=== PATIENT | male | born 1965 | race Caucasian/White ===

== ENCOUNTER 2019-04-14 07:23 | Emergency (ER) | payer OTHER ==
--- NOTE | 2019-04-14 07:34 | EDM.PDOC ---
ED HPI GENERAL MEDICAL PROBLEM - General Chief Complaint: Gastrointestinal Problem Stated Complaint: BOWEL ISSUES, LOSING CONSCIOUSNESS Time Seen by Provider: 04/14/19 07:31 Source of Information: Reports: Patient History Limitations: Reports: No Limitations - History of Present Illness INITIAL COMMENTS - FREE TEXT/NARRATIVE: History of present illness: []Patient had surgery on his right rotator cuff 3 days ago and was put on a narcotic without stool softeners and complains of constipation and severe abdominal pain. Patient has not had any vomiting. Review of systems: As per history of present illness and below otherwise all systems reviewed and negative. Past medical history: As per history of present illness and as reviewed below otherwise noncontributory. Surgical history: As per history of present illness and as reviewed below otherwise noncontributory. Social history: No reported history of drug or alcohol abuse. Family history: As per history of present illness and as reviewed below otherwise noncontributory. Physical exam: General: Well developed, well nourished in NAD HEENT: Atraumatic, normocephalic, pupils reactive, negative for conjunctival pallor or scleral icterus, mucous membranes moist, throat clear, neck supple, nontender, trachea midline. Lungs: Clear to auscultation, breath sounds equal bilaterally, chest nontender. Heart: S1S2, regular, negative for clicks, rubs, or JVD. Abdomen: NABS, Soft, nondistended, nontender. Negative for masses or hepatosplenomegaly. Negative for costovertebral tenderness. Pelvis: Stable nontender. Genitourinary: Deferred. Rectal: Deferred. Extremities: Atraumatic, negative for cords or calf pain. Neurovascular unremarkable. Neuro: Awake, alert, oriented. Cranial nerves II through XII unremarkable. Cerebellum unremarkable. Motor and sensory unremarkable throughout. Exam nonfocal. Skin:warm and dry Diagnostics: Acute abdominal series, CBC, chemistry Therapeutics: The hydration, morphine, Valium, mag citrate ED Course: After 2 hours patient did have a bowel movement 2 and wants to go home. Impression: narcotic induced obstipation Prescriptions: None Plan: Patient instructed to take Colace, increase fluids and mag citrate for constipation. Definitive disposition and diagnosis as appropriate pending reevaluation and review of above. rectum Pain Score (Numeric/FACES): 10 - Related Data Allergies Allergy/AdvReac Type Severity Reaction Status Date / Time codeine Allergy Other Verified 04/14/19 07:28 Home Meds: Home Meds Losartan [Cozaar] 25 mg PO DAILY 08/27/15 [History] Omeprazole [Prilosec] 40 mg PO DAILY 08/27/15 [History] Simvastatin [Zocor] 10 mg PO DAILY 08/27/15 [History] Past Medical History HEENT History: Reports: Impaired Vision Cardiovascular History: Reports: High Cholesterol, Hypertension Respiratory History: Reports: None Gastrointestinal History: Reports: GERD Genitourinary History: Reports: None Musculoskeletal History: Reports: None Neurological History: Reports: None Psychiatric History: Reports: None Endocrine/Metabolic History: Reports: None Hematologic History: Reports: None Immunologic History: Reports: None Oncologic (Cancer) History: Reports: None Dermatologic History: Reports: None - Infectious Disease History Infectious Disease History: Reports: None - Past Surgical History Head Surgeries/Procedures: Reports: None HEENT Surgical History: Reports: Other (See Below) Cardiovascular Surgical History: Reports: None Respiratory Surgical History: Reports: None GI Surgical History: Reports: EGD Male Surgical History: Reports: None Endocrine Surgical History: Reports: None Neurological Surgical History: Reports: None Musculoskeletal Surgical History: Reports: Shoulder Surgery Oncologic Surgical History: Reports: None Dermatological Surgical History: Reports: None Social & Family History - Family History Family Medical History: Noncontributory - Tobacco Use Smoking Status *Q: Never Smoker Second Hand Smoke Exposure: No - Caffeine Use Caffeine Use: Reports: None - Recreational Drug Use Recreational Drug Use: No ED ROS GENERAL - Review of Systems Review Of Systems: See Below ED EXAM, GI/ABD - Physical Exam Exam: See Below Course - Vital Signs Last Recorded V/S: Last Vital Signs Temp 97.7 F 04/14/19 07:29 Pulse 87 04/14/19 07:29 Resp 18 04/14/19 07:29 BP 156/103 H 04/14/19 07:29 Pulse Ox 94 L 04/14/19 07:29 - Orders/Labs/Meds Orders: Active Orders 24 hr Category Date Time Status Patient Status [ADT] Stat ADT 04/14/19 09:19 Active Sodium Chloride 0.9% [Saline Flush] Med 04/14/19 07:40 Active 10 ml FLUSH ASDIRECTED PRN Sodium Chloride 0.9% [Saline Flush] Med 04/14/19 07:40 Active 2.5 ml FLUSH ASDIRECTED PRN Saline Lock Insert [OM.PC] Stat Oth 04/14/19 07:39 Ordered Medication Orders Sodium Chloride (Saline Flush) 10 ml FLUSH ASDIRECTED PRN PRN Reason: Keep Vein Open Last Admin: 04/14/19 07:51 Dose: 10 ml Sodium Chloride (Saline Flush) 2.5 ml FLUSH ASDIRECTED PRN PRN Reason: Keep Vein Open Last Admin: 04/14/19 07:51 Dose: 2.5 ml Labs: Laboratory Tests 04/14/19 04/14/19 Range/Units 07:46 07:46 WBC 8.07 (4.0-11.0) K/uL RBC 5.05 (4.50-5.90) M/uL Hgb 15.5 (13.0-17.0) g/dL Hct 45.9 (38.0-50.0) % MCV 90.9 (80.0-98.0) fL MCH 30.7 (27.0-32.0) pg MCHC 33.8 (31.0-37.0) g/dL RDW Std Deviation 41.0 (28.0-62.0) fl RDW Coeff of Sharon 12 (11.0-15.0) % Plt Count 188 (150-400) K/uL MPV 10.60 (7.40-12.00) fL Neut % (Auto) 79.8 (48.0-80.0) % Lymph % (Auto) 12.4 L (16.0-40.0) % [place] % (Auto) 5.9 (0.0-15.0) % Eos % (Auto) 1.7 (0.0-7.0) % Baso % (Auto) 0.2 (0.0-1.5) % Neut # (Auto) 6.4 H (1.4-5.7) K/uL Lymph # (Auto) 1.0 (0.6-2.4) K/uL [place] # (Auto) 0.5 (0.0-0.8) K/uL Eos # (Auto) 0.1 (0.0-0.7) K/uL Baso # (Auto) 0.0 (0.0-0.1) K/uL Nucleated RBC % 0.0 /100WBC Nucleated RBCs # 0 K/uL Sodium 139 (136-148) mmol/L Potassium 4.1 (3.5-5.1) mmol/L Chloride 103 (98-107) mmol/L Carbon Dioxide 28.1 (21.0-32.0) mmol/L BUN 15 (7.0-18.0) mg/dL Creatinine 1.0 (0.8-1.3) mg/dL Est Cr Clr Drug Dosing 92.03 mL/min Estimated GFR (MDRD) > 60.0 ml/min Glucose 122 H (74-106) mg/dL Calcium 9.0 (8.5-10.1) mg/dL Total Bilirubin 0.9 (0.2-1.0) mg/dL AST 24 (15-37) IU/L ALT 48 (14-63) IU/L Alkaline Phosphatase 83 (46-116) U/L Total Protein 7.9 (6.4-8.2) g/dL Albumin 4.0 (3.4-5.0) g/dL Globulin 3.9 (2.6-4.0) g/dL Albumin/Globulin Ratio 1.0 (0.9-1.6) Meds: Medications Generic Name Dose Route Start Last Admin Trade Name Simi PRN Reason Stop Dose Admin Sodium Chloride 10 ml 04/14/19 07:40 04/14/19 07:51 Saline Flush FLUSH 10 ml ASDIRECTED PRN Administration Keep Vein Open Sodium Chloride 2.5 ml 04/14/19 07:40 04/14/19 07:51 Saline Flush FLUSH 2.5 ml ASDIRECTED PRN Administration Keep Vein Open Discontinued Medications Generic Name Dose Route Start Last Admin Trade Name Simi PRN Reason Stop Dose Admin Diazepam 5 mg 04/14/19 07:47 04/14/19 07:58 Valium IV 04/14/19 07:48 5 mg ONETIME ONE Administration Hydromorphone HCl 0.5 mg 04/14/19 07:47 04/14/19 07:57 Dilaudid IVPUSH 04/14/19 07:48 0.5 mg ONETIME ONE Administration Sodium Chloride 1,000 mls @ 999 mls/hr 04/14/19 07:39 04/14/19 07:48 Normal Saline IV 04/14/19 08:39 999 mls/hr .Bolus ONE Administration Magnesium Citrate 30 ml 04/14/19 07:49 04/14/19 08:00 Citrate Of Magnesia PO 04/14/19 07:50 296 ml ONETIME ONE Administration Magnesium Citrate 296 ml 04/14/19 09:24 Citrate Of Magnesia PO 04/14/19 09:25 ONETIME ONE Ondansetron HCl 4 mg 04/14/19 07:47 04/14/19 07:57 Zofran IVPUSH 04/14/19 07:48 4 mg ONETIME ONE Administration Departure - Departure Time of Disposition: 09:25 Disposition: Refer to Observation Condition: Good Clinical Impression: Obstipation - Discharge Information *PRESCRIPTION DRUG MONITORING PROGRAM REVIEWED*: Not Applicable *COPY OF PRESCRIPTION DRUG MONITORING REPORT IN PATIENT KAYY: Not Applicable Instructions: Constipation, Adult, [id number] Referrals: PCP,None [Primary Care Provider] - Forms: ED Department Discharge Additional Instructions: The following information is given to patients seen in the emergency department who are being discharged to home. This information is to outline your options for follow-up care. We provide all patients seen in our emergency department with a follow-up referral. The need for follow-up, as well as the timing and circumstances, are variable depending upon the specifics of your emergency department visit. If you don't have a primary care physician on staff, we will provide you with a referral. We always advise you to contact your personal physician following an emergency department visit to inform them of the circumstance of the visit and for follow-up with them and/or the need for any referrals to a consulting specialist. The emergency department will also refer you to a specialist when appropriate. This referral assures that you have the opportunity for follow-up care with a specialist. All of these measure are taken in an effort to provide you with optimal care, which includes your follow-up. Under all circumstances we always encourage you to contact your private physician who remains a resource for coordinating your care. When calling for follow-up care, please make the office aware that this follow-up is from your recent emergency room visit. If for any reason you are refused follow-up, please contact the [facility] Emergency Department at and asked to speak to the emergency department charge nurse. Take Colace, mag citrate as directed, follow up with your primary care physician , return to ER if symptoms worsen or change. [facility] [address] [place] [id number] - My Orders Last 24 Hours: My Active Orders 04/14/19 07:39 Saline Lock Insert [OM.PC] Stat 04/14/19 07:40 Sodium Chloride 0.9% [Saline Flush] 10 ml FLUSH ASDIRECTED PRN Sodium Chloride 0.9% [Saline Flush] 2.5 ml FLUSH ASDIRECTED PRN 04/14/19 09:19 Patient Status [ADT] Stat - Assessment/Plan Last 24 Hours: My Active Orders 04/14/19 07:39 Saline Lock Insert [OM.PC] Stat 04/14/19 07:40 Sodium Chloride 0.9% [Saline Flush] 10 ml FLUSH ASDIRECTED PRN Sodium Chloride 0.9% [Saline Flush] 2.5 ml FLUSH ASDIRECTED PRN 04/14/19 09:19 Patient Status [ADT] Stat
[2019-04-14] MEDS ORDERED: Sodium Chloride 0.9% 1,000 ML IV ONE (07:39)
[2019-04-14] MEDS ORDERED: Sodium Chloride 0.9% 10 ML Syringe FLUSH PRN (07:40)
[2019-04-14] MEDS ORDERED: Sodium Chloride 0.9% 2.5 ML Syringe FLUSH PRN (07:40)
[2019-04-14] MEDS ORDERED: Ondansetron 4 MG/2 ML SDV IVPUSH ONE (07:47)
[2019-04-14] MEDS ORDERED: diazePAM 5 MG/ML MDV IV ONE (07:47)
[2019-04-14] MEDS ORDERED: HYDROmorphone 2 MG/ML Syringe IVPUSH ONE (07:47)
[2019-04-14] MEDS ORDERED: Magnesium Citrate Solution 296 ML Bottle PO ONE ×2 (07:49→09:24)
[2019-04-14 08:21] LABS: BLOOD UREA NITROGEN,BUN 15 mg/dL (7.0-18.0); CARBON DIOXIDE,CO2 28.1 mmol/L (21.0-32.0); CHLORIDE,CL 103 mmol/L (98-107); GLUCOSE RANDOM 122 mg/dL (74-106); POTASSIUM,K 4.1 mmol/L (3.5-5.1); SODIUM,NA 139 mmol/L (136-148)
--- NOTE | 2019-04-14 08:48 | CR ---
INDICATION: Chest pain; shortness of breath. COMPARISON: Chest radiograph August 27, 2015. TECHNIQUE: Single AP chest. FINDINGS: Normal size cardiac silhouette. Clear lung alvarado with no evidence of acute pneumonic infiltrates or CHF. No pneumothorax or pleural effusion. Benign calcified lymph nodes mediastinum and right kay. IMPRESSION: Negative chest. Dictated by Tyrell Lucas MD @ Apr 14 2019 8:46AM Signed by Dr. Tyrell Lucas @ Apr 14 2019 8:47AM
--- NOTE | 2019-04-14 08:51 | CR ---
INDICATION: Abdominal pain; constipation. COMPARISON: None. TECHNIQUE: single upright radiograph of the abdomen. FINDINGS: Nonspecific intestinal gas pattern without any evidence of intestinal obstruction. No pneumoperitoneum. No abnormal intra-abdominal calcifications are identified. No evidence of unusual amount of retained stool in the colon. Impression : Negative Upright radiograph the abdomen. Dictated by Tyrell Lucas MD @ Apr 14 2019 8:47AM Signed by Dr. Tyrell Lucas @ Apr 14 2019 8:49AM
[2019-04-14 09:40] VITALS: BP 130/90; PULSE 89
== END 2019-04-14 09:41 | disposition other institution (70) ==
LOC: MW.ED 07:23
DX: K59.03 Drug induced constipation (principal); T40.605A Adverse effect of unspecified narcotics, initial encounter; Z88.5 Allergy status to narcotic agent; I10 Essential (primary) hypertension; E78.00 Pure hypercholesterolemia, unspecified; Z79.899 Other long term (current) drug therapy
CPT/HCPCS: 36415; 71045; 74018; 80053; 85025; 96361; 96374; 96375; 99284; A9270; J1170; J2405; J3360; J7040; 99283; J7030

== ENCOUNTER 2019-12-11 22:50 | Observation (INO) | payer OTHER ==
[2019-12-11] MEDS ORDERED: Sodium Chloride 0.9% 2.5 ML Syringe FLUSH PRN (22:53)
[2019-12-11] MEDS ORDERED: Sodium Chloride 0.9% 1,000 ML IV ONE (22:53)
[2019-12-11] MEDS ORDERED: Sodium Chloride 0.9% 10 ML Syringe FLUSH PRN (22:53)
--- NOTE | 2019-12-11 22:58 | EDM.PDOC ---
ED HPI GENERAL MEDICAL PROBLEM - General Chief Complaint: Drug or Alcohol Abuse Stated Complaint: INTOXICATION Time Seen by Provider: 12/11/19 22:52 - History of Present Illness INITIAL COMMENTS - FREE TEXT/NARRATIVE: History of present illness: 54-year-old male brought by EMS for head injury and intoxication. Apparently patient fell and struck his face. EMS is not certain of the details. They did find the patient was bleeding from his nose and they found a puddle of blood on the ground. Patient denies any headache. Denies any loss of consciousness. He is A+O x3. He does report that he has been drinking and that he has some chewing tobacco in his mouth. He is not able to tell me anything about the mechanism of the fall. Vital signs are stable for EMS. Review of systems: As per history of present illness and below otherwise all systems reviewed and negative. Past medical history: As per history of present illness and as reviewed below otherwise noncontributory. Hypertension, hypercholesterolemia, GERD Surgical history: As per history of present illness and as reviewed below otherwise noncontributory. Social history: No reported history of drug abuse. Chewing tobacco, alcohol abuse Family history: As per history of present illness and as reviewed below otherwise noncontributory. Physical exam: GEN: no acute distress, well appearing HEENT: Normocephalic, no tenderness, crepitus on palpation, or external signs of trauma to the head. Blood in both nares, no septal hematoma, chewing tobacco and small amount of blood in oropharynx, mucous membranes moist Neck: supple, no C-spine tenderness, trachea midline. Lungs: No respiratory distress. No chest wall tenderness Heart: RRR Abdomen: Soft, nondistended, nontender. No abdominal tenderness or signs of trauma. Back: nontender Extremities: Atraumatic. Full range of motion of all 4 extremities with no pain with range of motion or tenderness and no signs of trauma. Neurovascularly intact. Neuro: Speech is mildly slurred and patient appears slightly intoxicated, however awake, alert, oriented x 3. Neuro Exam nonfocal. Skin: warm, dry, no lesions Diagnostics: Labs, CT scans Therapeutics: [] MDM: Impression: [] Plan: [] Definitive disposition and diagnosis as appropriate pending reevaluation and review of above. no pain Pain Score (Numeric/FACES): 0 - Related Data Allergies Allergy/AdvReac Type Severity Reaction Status Date / Time codeine Allergy Other Verified 12/11/19 22:55 Home Meds: Home Meds Losartan [Cozaar] 25 mg PO DAILY 08/27/15 [History] Omeprazole [Prilosec] 40 mg PO DAILY 08/27/15 [History] Simvastatin [Zocor] 10 mg PO DAILY 08/27/15 [History] Potassium Gluconate [Potassium] 0 mg PO 12/11/19 [History] Past Medical History HEENT History: Reports: Impaired Vision Cardiovascular History: Reports: High Cholesterol, Hypertension Respiratory History: Reports: None Gastrointestinal History: Reports: GERD Genitourinary History: Reports: None Musculoskeletal History: Reports: None Neurological History: Reports: None Psychiatric History: Reports: None Endocrine/Metabolic History: Reports: None Hematologic History: Reports: None Immunologic History: Reports: None Oncologic (Cancer) History: Reports: None Dermatologic History: Reports: None - Infectious Disease History Infectious Disease History: Reports: None - Past Surgical History Head Surgeries/Procedures: Reports: None HEENT Surgical History: Reports: Other (See Below) Cardiovascular Surgical History: Reports: None Respiratory Surgical History: Reports: None GI Surgical History: Reports: EGD Male Surgical History: Reports: None Endocrine Surgical History: Reports: None Neurological Surgical History: Reports: None Musculoskeletal Surgical History: Reports: Shoulder Surgery Oncologic Surgical History: Reports: None Dermatological Surgical History: Reports: None Social & Family History - Family History Family Medical History: Noncontributory - Caffeine Use Caffeine Use: Reports: None ED ROS GENERAL - Review of Systems Review Of Systems: See Below (See HPI) ED EXAM, GENERAL - Physical Exam Exam: See Below (See HPI) EKG INTERPRETATION EKG Interpretation Comments: EKG performed today at 11:41 PM, sinus rhythm, rate 75, PAC, nonspecific intraventricular conduction delay, no STEMI. Interpreted by me. Course - Vital Signs Last Recorded V/S: Last Vital Signs Temp 96.8 F L 12/11/19 22:58 Pulse 85 12/11/19 22:58 Resp 18 12/11/19 22:58 BP 119/85 12/11/19 22:58 Pulse Ox 97 12/11/19 22:58 - Orders/Labs/Meds Orders: Active Orders 24 hr Category Date Time Status EKG 12 Lead [EKG Documentation Completion] [RC] STAT Care 12/11/19 23:29 Active Sodium Chloride 0.9% [Saline Flush] Med 12/11/19 22:53 Active 10 ml FLUSH ASDIRECTED PRN Sodium Chloride 0.9% [Saline Flush] Med 12/11/19 22:53 Active 2.5 ml FLUSH ASDIRECTED PRN Saline Lock Insert [OM.PC] Stat Oth 12/11/19 22:53 Ordered Medication Orders Sodium Chloride (Saline Flush) 10 ml FLUSH ASDIRECTED PRN PRN Reason: Keep Vein Open Sodium Chloride (Saline Flush) 2.5 ml FLUSH ASDIRECTED PRN PRN Reason: Keep Vein Open Labs: Laboratory Tests 12/11/19 12/11/19 12/11/19 Range/Units 23:04 23:04 23:04 WBC 5.86 (4.0-11.0) K/uL RBC 4.72 (4.50-5.90) M/uL Hgb 14.2 (13.0-17.0) g/dL Hct 42.7 (38.0-50.0) % MCV 90.5 (80.0-98.0) fL MCH 30.1 (27.0-32.0) pg MCHC 33.3 (31.0-37.0) g/dL RDW Std Deviation 40.2 (28.0-62.0) fl RDW Coeff of Sharon 12 (11.0-15.0) % Plt Count 163 (150-400) K/uL MPV 10.60 (7.40-12.00) fL Neut % (Auto) 51.1 (48.0-80.0) % Lymph % (Auto) 39.8 (16.0-40.0) % [place] % (Auto) 6.8 (0.0-15.0) % Eos % (Auto) 2.0 (0.0-7.0) % Baso % (Auto) 0.3 (0.0-1.5) % Neut # (Auto) 3.0 (1.4-5.7) K/uL Lymph # (Auto) 2.3 (0.6-2.4) K/uL [place] # (Auto) 0.4 (0.0-0.8) K/uL Eos # (Auto) 0.1 (0.0-0.7) K/uL Baso # (Auto) 0.0 (0.0-0.1) K/uL Nucleated RBC % 0.0 /100WBC Nucleated RBCs # 0 K/uL Sodium 142 (136-148) mmol/L Potassium 4.1 (3.5-5.1) mmol/L Chloride 105 (98-107) mmol/L Carbon Dioxide 23.3 (21.0-32.0) mmol/L BUN 14 (7.0-18.0) mg/dL Creatinine 0.7 L (0.8-1.3) mg/dL Est Cr Clr Drug Dosing 131.48 mL/min Estimated GFR (MDRD) > 60.0 ml/min Glucose 113 H (74-106) mg/dL Calcium 8.1 L (8.5-10.1) mg/dL Total Bilirubin 0.5 (0.2-1.0) mg/dL AST 34 (15-37) IU/L ALT 83 H (14-63) IU/L Alkaline Phosphatase 80 (46-116) U/L Troponin I < 0.050 (0.000-0.056) ng/mL Total Protein 6.8 (6.4-8.2) g/dL Albumin 3.7 (3.4-5.0) g/dL Globulin 3.1 (2.6-4.0) g/dL Albumin/Globulin Ratio 1.2 (0.9-1.6) Ethyl Alcohol 251 mg/dL SARS Virus RNA (PCR) (NEGATIVE) 12/12/19 Range/Units 00:25 WBC (4.0-11.0) K/uL RBC (4.50-5.90) M/uL Hgb (13.0-17.0) g/dL Hct (38.0-50.0) % MCV (80.0-98.0) fL MCH (27.0-32.0) pg MCHC (31.0-37.0) g/dL RDW Std Deviation (28.0-62.0) fl RDW Coeff of Sharon (11.0-15.0) % Plt Count (150-400) K/uL MPV (7.40-12.00) fL Neut % (Auto) (48.0-80.0) % Lymph % (Auto) (16.0-40.0) % [place] % (Auto) (0.0-15.0) % Eos % (Auto) (0.0-7.0) % Baso % (Auto) (0.0-1.5) % Neut # (Auto) (1.4-5.7) K/uL Lymph # (Auto) (0.6-2.4) K/uL [place] # (Auto) (0.0-0.8) K/uL Eos # (Auto) (0.0-0.7) K/uL Baso # (Auto) (0.0-0.1) K/uL Nucleated RBC % /100WBC Nucleated RBCs # K/uL Sodium (136-148) mmol/L Potassium (3.5-5.1) mmol/L Chloride (98-107) mmol/L Carbon Dioxide (21.0-32.0) mmol/L BUN (7.0-18.0) mg/dL Creatinine (0.8-1.3) mg/dL Est Cr Clr Drug Dosing mL/min Estimated GFR (MDRD) ml/min Glucose (74-106) mg/dL Calcium (8.5-10.1) mg/dL Total Bilirubin (0.2-1.0) mg/dL AST (15-37) IU/L ALT (14-63) IU/L Alkaline Phosphatase (46-116) U/L Troponin I (0.000-0.056) ng/mL Total Protein (6.4-8.2) g/dL Albumin (3.4-5.0) g/dL Globulin (2.6-4.0) g/dL Albumin/Globulin Ratio (0.9-1.6) Ethyl Alcohol mg/dL SARS Virus RNA (PCR) NEGATIVE (NEGATIVE) Meds: Medications Generic Name Dose Route Start Last Admin Trade Name Freq PRN Reason Stop Dose Admin Sodium Chloride 10 ml 12/11/19 22:53 Saline Flush FLUSH ASDIRECTED PRN Keep Vein Open Sodium Chloride 2.5 ml 12/11/19 22:53 Saline Flush FLUSH ASDIRECTED PRN Keep Vein Open Discontinued Medications Generic Name Dose Route Start Last Admin Trade Name Freq PRN Reason Stop Dose Admin Sodium Chloride 1,000 mls @ 999 mls/hr 12/11/19 22:53 12/11/19 23:15 Normal Saline IV 12/11/19 23:53 999 mls/hr .Bolus ONE Administration - Re-Assessments/Exams Free Text/Narrative Re-Assessment/Exam: 12/11/19 23:30 The patient's neftaliancRichelle Jose Albertocarmella called in for an update. She reported that she had spoken to him earlier in evening around 8:00 in he sounded intoxicated but had not fallen at that time. Then he called her later this evening and told her he had fallen and was bleeding, he showed her the puddle of blood on the floor, and she was very concerned and called 911. He was unable to explain to her the mechanism of the fall or if he had loss of consciousness or syncope prior to the fall. I discussed with her plan of care including labs, EKG and CT scans and depending on those results and the patient's sober re-eval, may end up admitting the patient for observation and cardiac monitoring versus discharge home. She is in agreement with this plan. She is currently located in [place]. 12/12/19 00:12 On reassessment, upon returning from the CT scan the patient became hypoxic to 79% while sleeping. Therefore 2 L of O2 were added. O2 sat now 96% on 2 L. 12/12/19 00:27 Dr. Diaz called back and accepts admission. Departure - Departure Time of Disposition: 00:21 Disposition: Refer to Observation Clinical Impression: Intoxication Syncope Qualifiers: Encounter type: initial encounter - Discharge Information Sepsis Event Note (ED) - Focused Exam Vital Signs: Vital Signs Temp Pulse Resp BP Pulse Ox 12/11/19 22:58 96.8 F L 85 18 119/85 97 - My Orders Last 24 Hours: My Active Orders 12/11/19 22:53 Sodium Chloride 0.9% [Saline Flush] 10 ml FLUSH ASDIRECTED PRN Sodium Chloride 0.9% [Saline Flush] 2.5 ml FLUSH ASDIRECTED PRN Saline Lock Insert [OM.PC] Stat 12/11/19 23:29 EKG 12 Lead [EKG Documentation Completion] [RC] STAT - Assessment/Plan Last 24 Hours: My Active Orders 12/11/19 22:53 Sodium Chloride 0.9% [Saline Flush] 10 ml FLUSH ASDIRECTED PRN Sodium Chloride 0.9% [Saline Flush] 2.5 ml FLUSH ASDIRECTED PRN Saline Lock Insert [OM.PC] Stat 12/11/19 23:29 EKG 12 Lead [EKG Documentation Completion] [RC] STAT
[2019-12-11 23:31] LABS: BLOOD UREA NITROGEN,BUN 14 mg/dL (7.0-18.0); CARBON DIOXIDE,CO2 23.3 mmol/L (21.0-32.0); CHLORIDE,CL 105 mmol/L (98-107); GLUCOSE RANDOM 113 mg/dL (74-106); POTASSIUM,K 4.1 mmol/L (3.5-5.1); SODIUM,NA 142 mmol/L (136-148)
--- NOTE | 2019-12-11 23:56 | CT ---
Indication: Trauma, intoxicated Technique: Nonenhanced axial CT imaging through the head. Sagittal and coronal reconstructions are provided. Comparison: None Findings: There is no intracranial hemorrhage, edema, or mass effect. Kendrick-white matter differentiation is preserved. The ventricles are normal in size. The basal cisterns are patent. The calvarium is intact. The visualized paranasal sinuses and mastoid air cells are aerated. Impression: No acute intracranial process. Please note that all CT scans at this facility use dose modulation, iterative reconstruction, and/or weight-based dosing when appropriate to reduce radiation dose to as low as reasonably achievable. Dictated by Rebeca Mckeon MD @ Dec 11 2019 11:50PM Signed by Dr. Rebeca Mckeon @ Dec 11 2019 11:54PM
--- NOTE | 2019-12-12 00:03 | CT ---
Indication: Trauma, intoxicated Technique: Nonenhanced axial CT imaging through the cervical spine. Sagittal and coronal reconstructions are provided. Comparison: None Findings: Examination is suboptimal due to mild motion degradation in the mid to lower cervical spine. Within these limitations, no fracture is demonstrated. The cervical vertebral bodies are normal in height. Spinal alignment is maintained. The atlantoaxial and atlantooccipital relationships are normal. There is no prevertebral edema. There is multilevel degenerative disc disease, most pronounced at C5-6. Spinal stenosis is suggested at C5-6. There is also multilevel degenerative facet hypertrophy, worst at C2-3 through C4-5 on the left. Neural foramina stenosis is present at C2-3 and C3-4 on the left and at C4-5 and C5-6 bilaterally. Impression: 1. No acute fracture or traumatic malalignment. 2. Degenerative changes, as above. Please note that all CT scans at this facility use dose modulation, iterative reconstruction, and/or weight-based dosing when appropriate to reduce radiation dose to as low as reasonably achievable. Dictated by Rebeca Mckeon MD @ Dec 11 2019 11:54PM Signed by Dr. Rebeca Mckeon @ Dec 12 2019 12:02AM
[2019-12-12] MEDS ORDERED: Folic Acid 1 MG Tab PO SCH (01:45)
[2019-12-12] MEDS ORDERED: Thiamine 100 MG Tab PO SCH (01:45)
[2019-12-12] MEDS ORDERED: LORazepam 2 MG/ML SDV IVPUSH PRN (01:45)
[2019-12-12 08:13] VITALS: BP 109/59; PULSE 67
[2019-12-12] MEDS ORDERED: Acetaminophen 325 MG Tab PO PRN (08:17)
[2019-12-12] MEDS ORDERED: Ondansetron 4 MG/2 ML SDV IVPUSH PRN (08:17)
[2019-12-12] MEDS ORDERED: Sodium Chloride 0.9% 2.5 ML Syringe FLUSH PRN (08:18)
--- NOTE | 2019-12-12 10:01 | PCM.HP.2 ---
H&P History of Present Illness - General Date of Service: 12/12/19 Admit Problem/Dx: Admission Diagnosis/Problem Admission Diagnosis/Problem Alcohol intoxication, fall Source of Information: Patient History Limitations: Reports: No Limitations - History of Present Illness Initial Comments - Free Text/Narative: This 54 year old male with pmh of HTN and dyslipidemia presented to the ED via EMS after his girlfriend called 911 after he called her showing the puddle of blood after falling. He is unsure what happened. He reports drink at least 4 glasses of wine last night. He denies the mechanism of falling. He reports he drinks 3 nights a week. He states prior to this he was feeling well. No chest pains or dizziness. He denies recent fevers or acute illness. He reports some lip swelling since fall. No nasal pain or nose bleeding since arriving to the floor. He denies recreational drug use, chews 1 tin of chewing tobacco a day. In the ED labwork WNL. ETOH elevated at 251 and COVID testing was negative. Cervical spine CT revealed degenerative changes but no acute findings. Head CT negative. VS were stable. He was admitted for fall and alcohol intoxication. he was given 1 L NS in the ED. PCP, Dr No no pain Pain Score (Numeric/FACES): 0 - Related Data Allergies/Adverse Reactions: Allergies Allergy/AdvReac Type Severity Reaction Status Date / Time codeine Allergy Other Verified 12/12/19 02:29 Home Medications: Home Meds Losartan [Cozaar] 50 mg PO DAILY 08/27/15 [History] Omeprazole [Prilosec] 40 mg PO DAILY 08/27/15 [History] Simvastatin [Zocor] 40 mg PO DAILY 08/27/15 [History] Past Medical History HEENT History: Reports: Impaired Vision Cardiovascular History: Reports: High Cholesterol, Hypertension. Denies: CAD Respiratory History: Reports: None Gastrointestinal History: Reports: GERD Genitourinary History: Reports: None Musculoskeletal History: Reports: None Neurological History: Reports: None Psychiatric History: Reports: None Endocrine/Metabolic History: Reports: None Hematologic History: Reports: None Immunologic History: Reports: None Oncologic (Cancer) History: Reports: None Dermatologic History: Reports: None - Infectious Disease History Infectious Disease History: Reports: None - Past Surgical History Head Surgeries/Procedures: Reports: None HEENT Surgical History: Reports: Other (See Below) Cardiovascular Surgical History: Reports: None Respiratory Surgical History: Reports: None GI Surgical History: Reports: EGD Male Surgical History: Reports: None Endocrine Surgical History: Reports: None Neurological Surgical History: Reports: None Musculoskeletal Surgical History: Reports: Shoulder Surgery Oncologic Surgical History: Reports: None Dermatological Surgical History: Reports: None Social & Family History - Family History Family Medical History: Noncontributory - Tobacco Use Smoking Status *Q: Former Smoker Tobacco Use Within Last Twelve Months: Smokeless Tobacco Years of Tobacco use: 25 Packs/Tins Daily: 1 Used Tobacco, but Quit: No Month/Year Tobacco Last Used: quit smoking 1999, but still chews - Caffeine Use Caffeine Use: Reports: Coffee - Alcohol Use Days Per Week of Alcohol Use: 3 Number of Drinks Per Day: 4 Total Drinks Per Week: 12 Date of Last Drink: 12/11/19 - Recreational Drug Use Recreational Drug Use: No - Living Situation & Occupation Living situation: Reports: Occupation: Employed H&P Review of Systems - Review of Systems: Review Of Systems: See Below General: Reports: No Symptoms. Denies: Fever, Chills, Malaise, Weakness HEENT: Reports: Other (lip swelling. No nasal pain or swelling. Mild congestion noted. ) Pulmonary: Reports: No Symptoms. Denies: Shortness of Breath Cardiovascular: Reports: No Symptoms. Denies: Chest Pain Gastrointestinal: Reports: No Symptoms. Denies: Abdominal Pain Genitourinary: Reports: No Symptoms. Denies: Dysuria, Frequency, Burning Musculoskeletal: Reports: No Symptoms Psychiatric: Reports: No Symptoms Neurological: Reports: No Symptoms Hematologic/Lymphatic: Reports: No Symptoms Immunologic: Reports: No Symptoms Exam - Exam Exam: See Below - Vital Signs Vital Signs: Last Vital Signs Temp 98.8 F 12/12/19 08:11 Pulse 67 12/12/19 08:11 Resp 14 12/12/19 08:11 BP 109/59 L 12/12/19 08:11 Pulse Ox 95 12/12/19 08:11 Weight: 106.186 kg - Exam Quality Assessment: No: Supplemental Oxygen General: Alert, Oriented, Cooperative HEENT: Conjunctiva Clear, Nares Patent, Posterior Pharynx Clear, Other (No abrasion, dried blood to nasal passage) Lungs: Clear to Auscultation, Normal Respiratory Effort Cardiovascular: Regular Rate, Regular Rhythm, Normal S1, Normal S2. No: Systolic Murmur GI/Abdominal Exam: Normal Bowel Sounds, Soft, Non-Tender Extremities: Normal Inspection, Normal Range of Motion, Non-Tender, No Pedal Edema Neuro Extensive - Mental Status: Alert, Oriented x3 Neuro Extensive - Motor, Sensory, Reflexes: CN II-XII Intact Psychiatric: Alert, Normal Affect, Normal Mood. No: Withdrawal Symptoms - Patient Data Lab Results Last 24 hrs: Laboratory Results - last 24 hr 12/11/19 12/11/19 12/11/19 Range/Units 23:04 23:04 23:04 WBC 5.86 (4.0-11.0) K/uL RBC 4.72 (4.50-5.90) M/uL Hgb 14.2 (13.0-17.0) g/dL Hct 42.7 (38.0-50.0) % MCV 90.5 (80.0-98.0) fL MCH 30.1 (27.0-32.0) pg MCHC 33.3 (31.0-37.0) g/dL RDW Std Deviation 40.2 (28.0-62.0) fl RDW Coeff of Sharon 12 (11.0-15.0) % Plt Count 163 (150-400) K/uL MPV 10.60 (7.40-12.00) fL Neut % (Auto) 51.1 (48.0-80.0) % Lymph % (Auto) 39.8 (16.0-40.0) % [place] % (Auto) 6.8 (0.0-15.0) % Eos % (Auto) 2.0 (0.0-7.0) % Baso % (Auto) 0.3 (0.0-1.5) % Neut # (Auto) 3.0 (1.4-5.7) K/uL Lymph # (Auto) 2.3 (0.6-2.4) K/uL [place] # (Auto) 0.4 (0.0-0.8) K/uL Eos # (Auto) 0.1 (0.0-0.7) K/uL Baso # (Auto) 0.0 (0.0-0.1) K/uL Nucleated RBC % 0.0 /100WBC Nucleated RBCs # 0 K/uL Sodium 142 (136-148) mmol/L Potassium 4.1 (3.5-5.1) mmol/L Chloride 105 (98-107) mmol/L Carbon Dioxide 23.3 (21.0-32.0) mmol/L BUN 14 (7.0-18.0) mg/dL Creatinine 0.7 L (0.8-1.3) mg/dL Est Cr Clr Drug Dosing 131.48 mL/min Estimated GFR (MDRD) > 60.0 ml/min Glucose 113 H (74-106) mg/dL Calcium 8.1 L (8.5-10.1) mg/dL Total Bilirubin 0.5 (0.2-1.0) mg/dL AST 34 (15-37) IU/L ALT 83 H (14-63) IU/L Alkaline Phosphatase 80 (46-116) U/L Troponin I < 0.050 (0.000-0.056) ng/mL Total Protein 6.8 (6.4-8.2) g/dL Albumin 3.7 (3.4-5.0) g/dL Globulin 3.1 (2.6-4.0) g/dL Albumin/Globulin Ratio 1.2 (0.9-1.6) Ethyl Alcohol 251 mg/dL SARS Virus RNA (PCR) (NEGATIVE) 12/12/19 Range/Units 00:25 WBC (4.0-11.0) K/uL RBC (4.50-5.90) M/uL Hgb (13.0-17.0) g/dL Hct (38.0-50.0) % MCV (80.0-98.0) fL MCH (27.0-32.0) pg MCHC (31.0-37.0) g/dL RDW Std Deviation (28.0-62.0) fl RDW Coeff of Sharon (11.0-15.0) % Plt Count (150-400) K/uL MPV (7.40-12.00) fL Neut % (Auto) (48.0-80.0) % Lymph % (Auto) (16.0-40.0) % [place] % (Auto) (0.0-15.0) % Eos % (Auto) (0.0-7.0) % Baso % (Auto) (0.0-1.5) % Neut # (Auto) (1.4-5.7) K/uL Lymph # (Auto) (0.6-2.4) K/uL [place] # (Auto) (0.0-0.8) K/uL Eos # (Auto) (0.0-0.7) K/uL Baso # (Auto) (0.0-0.1) K/uL Nucleated RBC % /100WBC Nucleated RBCs # K/uL Sodium (136-148) mmol/L Potassium (3.5-5.1) mmol/L Chloride (98-107) mmol/L Carbon Dioxide (21.0-32.0) mmol/L BUN (7.0-18.0) mg/dL Creatinine (0.8-1.3) mg/dL Est Cr Clr Drug Dosing mL/min Estimated GFR (MDRD) ml/min Glucose (74-106) mg/dL Calcium (8.5-10.1) mg/dL Total Bilirubin (0.2-1.0) mg/dL AST (15-37) IU/L ALT (14-63) IU/L Alkaline Phosphatase (46-116) U/L Troponin I (0.000-0.056) ng/mL Total Protein (6.4-8.2) g/dL Albumin (3.4-5.0) g/dL Globulin (2.6-4.0) g/dL Albumin/Globulin Ratio (0.9-1.6) Ethyl Alcohol mg/dL SARS Virus RNA (PCR) NEGATIVE (NEGATIVE) Result Diagrams: 12/11/19 23:04 12/11/19 23:04 Sepsis Event Note - Evaluation Sepsis Screening Result: No Definite Risk - Focused Exam Vital Signs: Vital Signs Temp Pulse Resp BP Pulse Ox 12/12/19 08:11 98.8 F 67 14 109/59 L 95 12/12/19 02:20 97.4 F 80 16 117/79 95 12/12/19 01:46 98.2 F 75 20 129/81 97 12/12/19 01:15 96 20 129/84 93 L 12/12/19 00:46 72 20 117/76 93 L 12/12/19 00:15 79 20 119/81 95 12/11/19 23:47 93 L 12/11/19 23:45 76 20 125/77 88 L 12/11/19 22:58 96.8 F L 85 18 119/85 97 12/11/19 22:55 99 20 115/85 91 L Date Exam was Performed: 12/12/19 Time Exam was Performed: 10:29 - Problem List (1) HTN (hypertension) SNOMED Code(s): 18267485 ICD Code: I10 - ESSENTIAL (PRIMARY) HYPERTENSION Status: Acute Current Visit: Yes (2) Dyslipidemia SNOMED Code(s): 131439974 ICD Code: E78.5 - HYPERLIPIDEMIA, UNSPECIFIED Status: Acute Current Visit: Yes (3) Intoxication SNOMED Code(s): 29028012 ICD Code: [id number] - Status: Acute Current Visit: Yes Problem List Initiated/Reviewed/Updated: Yes Orders Last 24hrs: Active Orders 24 hr Category Date Time Status Patient Status [ADT] Routine ADT 12/12/19 00:28 Active Antiembolic Devices [RC] PER UNIT ROUTINE Care 12/12/19 08:17 Active CIWAA Assessment [RC] Q4H Care 12/12/19 01:47 Active Intake and Output [RC] QSHIFT Care 12/12/19 08:17 Active Oxygen Therapy [RC] PRN Care 12/12/19 08:17 Active Telemetry Monitoring [Cardiac Monitoring] [RC] Q8H Care 12/12/19 01:49 Active Up With Assistance [RC] ASDIRECTED Care 12/12/19 08:17 Active VTE/DVT Education [RC] PER UNIT ROUTINE Care 12/12/19 08:17 Active Vital Signs [RC] Q4H Care 12/12/19 08:17 Active Regular Diet [DIET] Diet 12/12/19 Breakfast Active Acetaminophen [Tylenol] Med 12/12/19 08:17 Active 650 mg PO Q4H PRN Folic Acid Med 12/12/19 01:45 Active 1 mg PO Q24H LORazepam [Ativan] Med 12/12/19 01:45 Active See Protocol IVPUSH Q4H PRN Ondansetron [Zofran] Med 12/12/19 08:17 Active 4 mg IVPUSH Q4H PRN Sodium Chloride 0.9% [Saline Flush] Med 12/12/19 08:18 Active 2.5 ml FLUSH ASDIRECTED PRN Thiamine [Vitamin B-1] Med 12/12/19 01:45 Active 100 mg PO Q24H Saline Lock Insert [OM.PC] Stat Oth 12/11/19 22:53 Ordered Sequential Compression Device [OM.PC] Per Unit Routine Oth 12/12/19 08:17 Ordered Resuscitation Status Routine Resus Stat 12/12/19 08:17 Ordered Medication Orders Acetaminophen (Tylenol) 650 mg PO Q4H PRN PRN Reason: Pain (Mild 1-3)/fever Folic Acid (Folic Acid) 1 mg PO Q24H [facility] Last Admin: 12/12/19 02:26 Dose: 1 mg Documented by: AVNI Lorazepam (Ativan) 0 mg IVPUSH Q4H PRN; Protocol PRN Reason: Withdrawal Symptoms Ondansetron HCl (Zofran) 4 mg IVPUSH Q4H PRN PRN Reason: Nausea Sodium Chloride (Saline Flush) 2.5 ml FLUSH ASDIRECTED PRN PRN Reason: IV Use Thiamine HCl (Vitamin B-1) 100 mg PO Q24H [facility] Last Admin: 12/12/19 02:26 Dose: 100 mg Documented by: AVNI Assessment/Plan Comment:: This 54 year old male admitted with fall and alcohol intoxication 1. Fall/alcohol intoxication - Given IVFs in ER. - VS stable, no hypotension noted - Fall likely related to intoxication - Feeling well this morning and is asking to be discharged home. - Encouraged sobriety, feels he does not need help with quitting alcohol use. - Discharge home today, continue home medications. Follow up with PCP in 1 week. return to ED or clinic if concerns should arise. - Mortality Measure Prognosis:: Good
== END 2019-12-12 11:01 | disposition home or self-care (01) ==
LOC: MW.ED 22:50 → MW.MS 12-12 00:28
PROVIDERS: ADMIT Internal Medicine; ATTEND Internal Medicine
DX: F10.129 Alcohol abuse with intoxication, unspecified (principal); E78.5 Hyperlipidemia, unspecified; E78.00 Pure hypercholesterolemia, unspecified; I10 Essential (primary) hypertension; K21.9 Gastro-esophageal reflux disease without esophagitis; Z20.828 Contact with and (suspected) exposure to other viral communicable diseases; Z79.899 Other long term (current) drug therapy; Z87.891 Personal history of nicotine dependence; Z88.5 Allergy status to narcotic agent; Y90.0 Blood alcohol level of less than 20 mg/100 ml; W19.XXXA Unspecified fall, initial encounter
CPT/HCPCS: 36415; 70450; 72125; 80053; 80307; 84484; 85025; 87635; 93005; 99285; A9270; J7030; 99284; U0002

== ENCOUNTER 2020-06-04 08:25 | Emergency (ER) | payer BC, OTHER ==
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
[2020-06-04 08:58] VITALS: BP 139/80; PULSE 95
== END 2020-06-04 08:58 | disposition home or self-care (01) ==
LOC: MW.ED 08:25
DX: S09.21XA Traumatic rupture of right ear drum, initial encounter (principal); E78.00 Pure hypercholesterolemia, unspecified; I10 Essential (primary) hypertension; K21.9 Gastro-esophageal reflux disease without esophagitis; Z79.899 Other long term (current) drug therapy; Z88.5 Allergy status to narcotic agent; Y04.0XXA Assault by unarmed brawl or fight, initial encounter
CPT/HCPCS: 99282; 99283